=== PATIENT | male | born 1995 | race Caucasian/White ===

== ENCOUNTER 2017-03-04 17:22 | Observation (INO) | payer OTHER ==
[~2017-03-04] VITALS: Ht 172.7 cm; Wt 105.2 kg
--- NOTE | 2017-03-04 17:37 | NUR ---
ARRIVAL PT ARRIVED AMBULATORY TO ER 4 C/O SWOLLEN LYMPH NODE TO RIGHT SIDE OF NECK. NO ACUTE DISTRESS NOTED. PT STATES WAS SEEN IN ANOTHER ER AND GIVEN IBUPROFEN AND NORCO. EDP NOTIFIED OF PT ARRIVAL.
[2017-03-04] MEDS ORDERED: ROCEPHIN 1,000 MG in NS 100ML 100 ML IV STA (18:19)
[2017-03-04] MEDS ORDERED: TORADOL IV STA (18:19)
--- NOTE | 2017-03-04 18:23 | ER.PDOC ---
General Chief Complaint: Neck/Upper back Pain Stated Complaint: SWOLLEN LYMPH NODE TRAVEL OUT OF US: No Time seen by MD: 18:17 Source: patient Exam Limitations: no limitations History of Present Illness Initial Comments swollen lymph node R neck [address] in [place] 3 weeks ago told to take antibiotics worse today pain increased sweling Timing/Duration: getting worse Severity: moderate Associated Symptoms: other Allergies: Coded Allergies: No Known Allergies (Unverified , 03/04/17) Past Medical History Medical History: no pertinent history Surgical History: no surgical history Family History Significant Family History: no pertinent family hx Social History Smoking: non-smoker Alcohol Use: none Drug Use: none Review of Systems Constitutional: denies fever EENTM: denies eye pain Respiratory: denies cough Cardiovascular: denies chest pain Gastrointestinal: denies abdominal pain Musculoskeletal: denies back pain Psychiatric/Neurological: anxiety All Other Systems: Reviewed and Negative Physical Exam General Appearance: Anxious Neck: Non-Tender, Full Range of Motion Respiratory: chest non-tender, lungs clear CVS: reg rate & rhythm, no murmur Extremities: Normal Range of Motion, Non-Tender Neurologic/Psychiatric: nail sticker II-XII NML as Tested Skin: Normal Color Lymphatic: No Adenopathy Comments large tender mass R neck supra clavicular Progress Progress signed out at 1900 Departure Time of Disposition: 19:00 Disposition: 05 DISCH/XFER OTHER Impression: Primary Impression: Neck mass Condition: Stable Referrals: PCP,UNKNOWN (PCP) PRIMARY CARE PROVIDER Additional Instructions: signed out at change of shift needs neck and chest CT with IV contrast Duration or Time Spent with Pa: 20 BARRON ROGERS MD Mar 04, 2017 18:23
[2017-03-04] MEDS ORDERED: NS 1000ML 1,000 ML IV ONE (18:30)
[2017-03-04 18:35] LABS: BASOPHIL % 0.2 % (0.0-0.2); EOSINOPHIL # 0.3 10^3/uL (0.0-0.2); EOSINOPHIL % 1.8 % (0.0-5.0); HEMOGLOBIN 13.2 g/dL (13.9-16.3); LYMPHOCYTES # 2.2 10^3/uL (1.0-4.8); LYMPHOCYTES % 13.9 % (24.0-44.0); MEAN CELL HGB 27.6 pg (26-34); MEAN CELL HGB CONCENTRATION 32.5 g/dL (33-37); MEAN CORP VOLUME 84.9 fL (78-100); MONOCYTES # 1.7 10^3/uL (0.3-0.8); MONOCYTES % 10.8 % (5.0-12.0); NEUTROPHIL # 11.8 10^3/uL (1.8-7.7); NEUTROPHILS % 72.9 % (41.0-85.0); RED CELL DISTRIBUTION WIDTH 12.8 % (11.5-14.5); WHITE BLOOD CELL 16.2 10^3/uL (4.5-11.0)
[2017-03-04 18:49] LABS: CALCIUM 9.2 mg/dL (8.4-10.5); CARBON DIOXIDE 30.1 mmol/L (20.0-32)
[2017-03-04] MEDS ORDERED: ROCEPHIN ONE (18:57)
--- NOTE | 2017-03-04 20:11 | DIREP ---
PROCEDURE:CT SOFT TISSUE NECK W/CONTRAST COMPARISON:None. INDICATIONS:mass R neck TECHNIQUE:CT images were created with intravenous contrast material. Sagittal and coronal reconstructions are performed. FINDINGS: NASOPHARYNX:Normal. Fossae of Rosenmuller and torus tubarius are symmetric. ORAL CAVITY:Normal. No visible mass. OROPHARYNX:Normal. Faucial and lingual tonsils are symmetric. HYPOPHARYNX:Normal. No mass or other visible lesion. LARYNX:Normal. The vocal cords are symmetric and without mass. SINUSES:Normal. Limited views show no significant fluid or mucosal thickening. NECK GLANDS:No pathologic lymphadenopathy. Few small bilateral jugular chain lymph nodes are identified. LYMPH NODES:Normal. No pathological-appearing or enlarged lymph nodes. SKULL BASE:Normal. Foramina are symmetric without bony erosion. VASCULATURE:Normal. Limited views are unremarkable. BONES:Normal. No significant osseous lesions. OTHER:There is a thin rim enhancing, irregular fluid collection measuring 3.6 x 3.1 x 4.1 cm, posterior to the right sternocleidomastoid muscle, approximating the subcutaneous tissues but deep to the platysma along the lateral right lower neck. This fluid collection is suspicious for an abscess. Correlation with white blood cell count is recommended. CONCLUSION: 1. 3.6 x 3.1 x 4.1 cm irregular, rim enhancing fluid collection in the right lower neck posterior and lateral to the right sternocleidomastoid muscle. This fluid collection is suspicious for an abscess. Dictated by: Jovani Titus MD on 03/04/2017 at 08:04 PM
[2017-03-04 20:27] LABS: APPEARANCE,URINE CLEAR (CLEAR); BILIRUBIN,URINE NEGATIVE (NEGATIVE); UA COLOR YELLOW (YELLOW); UROBILINOGEN,URINE NORMAL (NEGATIVE)
--- NOTE | 2017-03-04 20:29 | DIREP ---
PROCEDURE:CTA CHEST COMPARISON:[facility], CT, CT SOFT TISSUE NECK W/CONTRAST, 03/04/2017, 07:39 PM. INDICATIONS:mass r neck TECHNIQUE:Post contrast axial images through the chest with multiplanar MIP/3D reconstructions. FINDINGS: PULMONARY ARTERIES:Patent. LUNGS:No significant pulmonary parenchymal abnormalities. CARDIAC:Normal size heart and normal pulmonary vascularity. THYROID:Normal. THORACIC AORTA:Normal. MEDIASTINUM:Normal. Residual thymus is present. PLEURA:Normal. BONES:Normal. OTHER:Right lower neck supraclavicular fluid collection, best seen on the patient's CT of the neck performed at the same time. Enlarged 1.4 cm short axis right axillary lymph node. CONCLUSION: 1. Clear lungs. No evidence for pulmonary embolism. 2. Right lower neck supraclavicular fluid collection is best seen on the patient's CT of the neck, performed at the same time. 3. Enlarged 1.4 cm short axis right axillary lymph node. This may be reactive. Clinical follow-up can be performed, as indicated. Dictated by: Jovani Titus MD on 03/04/2017 at 08:24 PM
--- NOTE | 2017-03-04 20:57 | NUR ---
TRANSFER CALLED [facility] FOR TRANSFER. THEY ARE ON CODE 1, CODE 3 DIVERSION. PT HAS BEEN PUT ON TRANSFER LIST AT THIS TIME. CALLED [facility] FOR TRANSFER. [facility] IS ON COMPLETE DIVERSION AT THIS TIME.
[2017-03-04] MEDS ORDERED: CLEOCIN IV ONE (21:00)
--- NOTE | 2017-03-04 21:20 | NUR ---
dr fady shrestha at bedside
[2017-03-04] MEDS ORDERED: NS 100ML 100 ML IV ONE (21:30)
[2017-03-04] MEDS ORDERED: ZOSYN 3.375 GRAM VIAL IV ONE (21:39)
[2017-03-04] MEDS: ZOSYN IV SCH (21:53)
[2017-03-04] MEDS: NS IV SCH (21:53)
[2017-03-04] MEDS ORDERED: LACTATED RINGERS 1,000 ML IV SCH (22:00)
[2017-03-04] MEDS ORDERED: NORCO 5MG PO PRN (22:00)
[2017-03-04] MEDS: LOVENOX SQ SCH (22:00)
[2017-03-04] MEDS ORDERED: MORPHINE SULFATE IV PRN (22:00)
[2017-03-04] MEDS ORDERED: DILAUDID IV PRN (22:00)
[2017-03-04] MEDS ORDERED: PHENERGAN IV PRN (22:00)
[2017-03-04] MEDS ORDERED: TORADOL IV PRN (22:00)
[2017-03-04] MEDS ORDERED: ZOFRAN IV PRN (22:00)
[2017-03-04 23:36] VITALS: BP 149/94
[2017-03-05] VITALS (9 sets, daily range): BP systolic 124–168; BP diastolic 71–94
[2017-03-05] MEDS ORDERED: ZOSYN 3.375 GRAM VIAL IV ONE ×2 (03:24→05:30)
[2017-03-05] MEDS ORDERED: LOVENOX SQ ONE ×2 (03:24→21:25)
[2017-03-05] MEDS ORDERED: NS 100ML 100 ML IV ONE ×2 (03:24→05:30)
[2017-03-05] MEDS ORDERED: NS 500ML 500 ML IV ONE (03:26)
[2017-03-05] MEDS: PROTONIX IV IV SCH ×2 (03:46→09:00)
--- NOTE | 2017-03-05 04:30 | NUR ---
IV AC IV UNABLE TO FLUSH, DC'D IV AND RESTARTED 20G TO LEFT WRIST, PT TOLERATED WELL, IV ANTIBIOTICS RESTARTED. IWLL CONTINUE TO MONITOR.
[2017-03-05] MEDS: LACTATED RINGERS 1,000 ML IV SCH ×2 (05:45→14:00)
[2017-03-05] MEDS: NS IV SCH ×3 (05:45)
[2017-03-05] MEDS: ZOSYN IV SCH ×3 (05:45)
--- NOTE | 2017-03-05 06:30 | NUR ---
REPORT RECEIVED REPORT RECEIVED FROM COMBUSTION ENGINEER NURSE MANDEEP CARTY
--- NOTE | 2017-03-05 07:32 | NUR ---
Pt left the floor for OR with or nurses, assisted in bed.
--- NOTE | 2017-03-05 07:35 | NUR ---
Off unit Patient transferred off unit via hospital bed to OR.Bedside report given to MACHELLE Arriaga.
[2017-03-05] MEDS ORDERED: DECADRON ONE (08:32)
[2017-03-05] MEDS ORDERED: VERSED ONE (08:33)
[2017-03-05] MEDS ORDERED: DIPRIVAN IV ONE (08:33)
[2017-03-05] MEDS ORDERED: SUBLIMAZE ONE (08:33)
[2017-03-05] MEDS ORDERED: SENSORCAINE-MPF 0.5% VIAL ONE (08:37)
[2017-03-05] MEDS ORDERED: SODIUM CHLORIDE IR ONE (08:37)
[2017-03-05] MEDS ORDERED: MORPHINE SULFATE IV PRN (09:00)
[2017-03-05] MEDS ORDERED: LACTATED RINGERS 1,000 ML ONE (09:07)
[2017-03-05] MEDS ORDERED: BENADRYL IV PRN (10:00)
[2017-03-05] MEDS ORDERED: ZOFRAN IV PRN (10:00)
[2017-03-05] MEDS ORDERED: PHENERGAN IV PRN (10:00)
[2017-03-05] MEDS ORDERED: DILAUDID IV PRN (10:00)
[2017-03-05] MEDS ORDERED: VENTOLIN IH PRN (10:00)
--- NOTE | 2017-03-05 10:00 | NUR ---
Back on unit Patient arrived back on unit via hospital bed to room 305. Surgical dressing to right neck C/D/I. Special vitals initiated. Offered patient fluids and snacks. Patient denies pain or further needs at this time. Will continue to monitor. Call light within reach.
--- NOTE | 2017-03-05 10:00 | OPH ---
DATE OF SURGERY: PREOPERATIVE DIAGNOSIS: Right neck abscess. POSTOPERATIVE DIAGNOSIS: Right neck abscess. SURGEON: Rowdy Anders DO DEMO COORDINATOR: OR staff. ANESTHESIA: General by Arley Small CRNA plus local used on the field. PROCEDURES PERFORMED: Incision and drainage of abscess. SPECIMENS: Cultures sent to path. ESTIMATED BLOOD LOSS: 11 mL. COUNTS: At the completion of the case, counts were correct per OR staff. DESCRIPTION OF PROCEDURE: The patient is a 21-year-old male known from previous evaluation. Prior to procedure, informed consent was obtained. At time of procedure, he was taken to the operative suite and placed in supine position. After timeout was completed, general anesthesia was obtained. His right neck and chest were prepped and draped in normal fashion. Local was used to anesthetize the base of the area of concern and an 18-gauge needle was introduced into the pocket. Purulent fluid was drained and sent for cultures. Next, an incision was created in the fold of the neck and blunt dissection was made parallel to the structures down to the level of the pocket, which was drained. After the pocket was adequately opened and irrigated, it was palpated, it was noted that in the deep pocket there was possibly a lymph node, but I am uncertain of the nature of the inflammatory tissue in the base. Anteriorly to the pocket, we can feel the lateral border of the sternocleidomastoid. - The pocket slightly extends inferior to the clavicle. After the pocket of purulent fluid was drained, it was copiously irrigated. Minimal bleeding was identified, it was controlled with electrocautery. Next, the wound was packed with iodoform gauze. A dressing was applied and the drapes removed. The patient tolerated these procedures well. There were no acute complications noted. Rowdy Anders DO DR: COLLETTE/bradley JOB# [id number] CC: Ry Kee MD [facility]
[2017-03-05] MEDS: ZOSYN 3.375 GM/50 ML 50 ML IV SCH ×2 (12:16→17:53)
--- NOTE | 2017-03-05 16:30 | NUR ---
REASSESS THE TEMPERATURE REASSESS THE TEMPERATURE IT WAS 98.6. NO S/S OF DISTRESS, Pt DENIES ANY PAIN , DISCOMFORT AT THIS TIME.
--- NOTE | 2017-03-05 18:33 | NUR ---
report received report from offgoing shift
--- NOTE | 2017-03-05 21:10 | CNH ---
DATE OF CONSULTATION: CHIEF COMPLAINT: Right neck abscess. HISTORY OF PRESENT ILLNESS: This is a 21-year-old male who reports to me he noticed some swelling in his right neck 2-3 weeks ago. He was seen by the provider where he lives and was evaluated and treated with ibuprofen and [place] and discharged. He has noted increased swelling and noticed this morning when he woke up that he had significant swelling of his neck and some soreness. He reports he did not have any fevers at home today; however, he was taking headache medicine. He feels that the fevers were controlled with medications he took for the headache. He denies any history of trauma or injury to the area. He does have some stiffness of his neck associated with the anterior mass fullness. He has no previous symptoms. PAST MEDICAL HISTORY: Denies. PAST SURGICAL HISTORY: Denies. ALLERGIES: NO KNOWN DRUG ALLERGIES. HOME MEDICATIONS: Ibuprofen and [place]. FAMILY HISTORY: Mother is living at age 47. Father is living at age 43, they both are healthy per his report. OCCUPATIONAL HISTORY: The patient works as a heat sealing machine operator. SOCIAL HISTORY: Positive for occasional alcohol. He denies illicits or tobacco use. IMMUNIZATIONS STATUS: He reports he had a flu shot this year. REVIEW OF SYSTEMS: CONSTITUTIONAL: He denies fever, chills or weakness. ENDOCRINE: He denies thyroid disease or diabetes. ALLERGIES: Denies seasonal allergies, runny nose or cough. CARDIOVASCULAR: No chest pain or trouble breathing. PULMONARY: Denies dyspnea or cough. ABDOMEN: He denies abdominal pain, nausea, or vomiting. MUSCULOSKELETAL: No complaints. NEUROLOGIC: No reported seizure or blackouts. GENITOURINARY: No dysuria, frequency or urgency. He has rare nocturia. PHYSICAL EXAMINATION: VITAL SIGNS: Last temperature is 99.3, pulse has been as high as 133 since he has been here, currently it is 106, respiratory rate 16, blood pressure 156/93 and O2 sats 98%. HEENT: Normocephalic, atraumatic with pink mucous membranes. GENERAL APPEARANCE: Healthy 21-year-old male in no acute distress. NECK: Soft. He has a mass fullness in the lower neck laterally on the right side anteriorly, it is superior to the clavicles. Trachea is midline. No JVD or thyromegaly. HEART: Has regular rate and rhythm, tachycardic. LUNGS: Clear to auscultation bilaterally. ABDOMEN: Bowel sounds positive, soft, it is nontender. EXTREMITIES: Show positive radial pulse bilaterally, positive dorsal pedal pulse bilaterally. NEUROLOGIC: He has no acute findings. SKIN AND INTEGUMENT: Warm, dry. LABORATORY STUDIES: White count 16.2, hemoglobin 13.2, platelet count is 350,000. Chemistry shows BUN 10, creatinine 1.03, sodium is 138. Urine shows specific gravity 1.010. IMAGING STUDIES: He has had a CT scan of the neck that shows 3.6 x 3.1 x 4.1 fluid collection in the lower neck posterolateral of the right sternocleidomastoid consistent with an abscess. SURGICAL ASSESSMENT: 1. Probable right neck abscess. 2. Early sepsis. PLAN: 1. The patient is seen and examined. His chart is reviewed. 2. The patient's n.p.o. status is questionable. He has had solids in the last 4 hours. Therefore, because of the risk of aspiration, we will admit him to the hospitalist, and start him on broad spectrum IV antibiotics and board him for surgical drainage of the abscess tomorrow morning. Discussed with the patient and his family and with the hospitalist service and they are all in agreement with this plan. Rowdy Anders DO DR: COLLETTE/bradley JOB# [id number] CC: Ry Kee MD MTDD
[2017-03-05] MEDS: LOVENOX SQ SCH (21:32)
[2017-03-06 00:35] VITALS: BP 136/84
[2017-03-06] MEDS: ZOSYN 3.375 GM/50 ML 50 ML IV SCH ×3 (00:43→11:31)
[2017-03-06] MEDS: LACTATED RINGERS 1,000 ML IV SCH ×2 (06:00→08:12)
[2017-03-06 06:02] VITALS: BP 147/78
--- NOTE | 2017-03-06 06:30 | NUR ---
REPORT RECEIVED FROM THE MARKETING RESEARCH ANALYST NURSE
--- NOTE | 2017-03-06 07:10 | NUR ---
report report given to o/c shift
[2017-03-06 07:34] LABS: HEMOGLOBIN 12.5 g/dL (13.9-16.3); MEAN CELL HGB 27.7 pg (26-34); MEAN CELL HGB CONCENTRATION 32.1 g/dL (33-37); MEAN CORP VOLUME 86.3 fL (78-100); MEAN PLATELET VOLUME 10.1 fL (7.8-11.0); RED CELL DISTRIBUTION WIDTH 13.1 % (11.5-14.5); WHITE BLOOD CELL 18.7 10^3/uL (4.5-11.0)
[2017-03-06] MEDS: PROTONIX IV IV SCH (08:12)
--- NOTE | 2017-03-06 08:15 | NUR ---
WOUNDCARE WOUNDCARE WAS PROVIDED BY NURSE CHARMAINE CARTY, WAS DEMONSTRATED TO THE PARENTS OF Pt THE PROCESS OF DRESSING CHANGE AND WOUND CARE.
--- NOTE | 2017-03-06 10:00 | NUR ---
Wound care Wound dressing teaching provided to family and patient to perform at home. S/S of infection and when to contact physician reviewed.
--- NOTE | 2017-03-06 12:08 | NUR ---
BLOOD PRESSURE PER PAT SANTIAGO PtS BP 149/98, THIS NURSE ASKED THE Pt IF HE HAS ANY HEADACHE, CHEST, DIZZINESS, Pt DENIED AND STATES "ITS ALWAYS BEEN LIKE THAT SINCE I HAVE BEEN HERE", WILL REASSESS THE V/S. AND ENFORCED THE Pt TO NOTIGY NURSE IN CASE OF ANY S/S OF DISTRESS, Pt VERBALIZED UNDERSTANDING, FAMILY AT THE BEDSIDE.
[2017-03-06 12:19] VITALS: BP 149/98
[2017-03-06 13:45] LABS: BASOPHIL % 0.3 % (0.0-0.2); EOSINOPHIL # 0.1 10^3/uL (0.0-0.2); EOSINOPHIL % 0.4 % (0.0-5.0); HEMOGLOBIN 12.2 g/dL (13.9-16.3); LYMPHOCYTES # 2.3 10^3/uL (1.0-4.8); LYMPHOCYTES % 15.7 % (24.0-44.0); MEAN CELL HGB 28.1 pg (26-34); MEAN CELL HGB CONCENTRATION 32.4 g/dL (33-37); MEAN CORP VOLUME 86.6 fL (78-100); MEAN PLATELET VOLUME 10.2 fL (7.8-11.0); MONOCYTES # 1.1 10^3/uL (0.3-0.8); MONOCYTES % 7.7 % (5.0-12.0); NEUTROPHIL # 10.9 10^3/uL (1.8-7.7); NEUTROPHILS % 75.3 % (41.0-85.0); RED CELL DISTRIBUTION WIDTH 13.1 % (11.5-14.5); WHITE BLOOD CELL 14.5 10^3/uL (4.5-11.0)
[2017-03-06] MEDS ORDERED: AMOX1TAB63 PO (14:24)
--- NOTE | 2017-03-06 14:28 | PRM.DC ---
Discharge Summary Date of Discharge: Mar 06, 2017 Reason for Visit: Neck swelling and pain History Present Illness: (1) Neck abscess Status: Resolved ICD Code: L02.11 - Cutaneous abscess of neck SNOMED: [id number] Assessment & Plan: Continue oral antibiotics and wound care as instructed General: Alert, Oriented X3, Cooperative, No acute distress HEENT: PERRLA, EOMI Neck: Supple, No JVD, Other (neck wound dressing clean and dry) Lungs: Clear to auscultation, Normal air movement Heart: Regular rate, Normal S1, Normal S2 Abdomen: Normal bowel sounds, Soft, No tenderness Extremities: No clubbing, No cyanosis, No edema Skin: No breakdown Neuro: Normal speech, Strength at 5/5 X4 ext, Cranial nerves 3-12 NL Psych/Mental Status: Mental status NL, Mood NL Results(Labs/Rad) Laboratory Tests Test 03/04/17 18:30 03/04/17 20:08 03/05/17 05:29 03/06/17 07:22 White Blood Count 16.2 10^3/uL 18.7 10^3/uL Red Blood Count 4.78 10^6/uL 4.51 10^6/uL Hemoglobin 13.2 g/dL 12.5 g/dL Hematocrit 40.6 % 38.9 % Mean Corpuscular Volume 84.9 fL 86.3 fL Mean Corpuscular Hemoglobin 27.6 pg 27.7 pg Mean Corpuscular Hemoglobin Concent 32.5 g/dL 32.1 g/dL Red Cell Distribution Width 12.8 % 13.1 % Platelet Count 350 10^3/uL 335 10^3/uL Mean Platelet Volume 10.0 fL 10.1 fL Neutrophils (%) (Auto) 72.9 % Lymphocytes (%) (Auto) 13.9 % Monocytes (%) (Auto) 10.8 % Neutrophils # (Auto) 11.8 10^3/uL Lymphocytes # (Auto) 2.2 10^3/uL Monocytes # (Auto) 1.7 10^3/uL Absolute Immature Granulocyte (auto 0.07 10^3 u/L Eosinophils % 1.8 % Basophils % 0.2 % Basophils # 0.0 10^3/uL Eosinophil Count 0.3 10^3/uL Sodium Level 138 mmol/L Potassium Level 4.1 mmol/L Chloride Level 100.0 mmol/L Carbon Dioxide Level 30.1 mmol/L Anion Gap 12.0 Blood Urea Nitrogen 10 mg/dL Creatinine 1.03 mg/dL Estimated GFR () 110.3 BUN/Creatinine Ratio 9.0 Glucose Level 107 mg/dL Calcium Level 9.2 mg/dL Total Bilirubin 0.4 mg/dL Aspartate Amino Transf (AST/SGOT) 13 U/L Alanine Aminotransferase (ALT/SGPT) 31 U/L Alkaline Phosphatase 80 U/L Total Protein 8.1 g/dL Albumin 3.5 g/dL Globulin 4.6 Percent Immature Gran (Cell Imm) 0.40 % Urine Collection Type VOID Urine Color YELLOW Urine Appearance CLEAR Urine Bilirubin NEGATIVE MG/DL Urine Ketones NEGATIVE Urine Specific [place] 1.010 Urine pH 7 Urine Protein NEGATIVE Urine Urobilinogen NORMAL Urine Nitrate NEGATIVE Urine Leukocyte Esterase NEGATIVE Urine Blood NEGATIVE Urine Glucose NORMAL Prothrombin Time 10.4 SEC Prothrombin Time INR (Non-Therap) 1.0 Activated Partial Thromboplast Time 29.8 SEC Test 03/06/17 13:34 White Blood Count 14.5 10^3/uL Red Blood Count 4.34 10^6/uL Hemoglobin 12.2 g/dL Hematocrit 37.6 % Mean Corpuscular Volume 86.6 fL Mean Corpuscular Hemoglobin 28.1 pg Mean Corpuscular Hemoglobin Concent 32.4 g/dL Red Cell Distribution Width 13.1 % Platelet Count 338 10^3/uL Mean Platelet Volume 10.2 fL Neutrophils (%) (Auto) 75.3 % Lymphocytes (%) (Auto) 15.7 % Monocytes (%) (Auto) 7.7 % Neutrophils # (Auto) 10.9 10^3/uL Lymphocytes # (Auto) 2.3 10^3/uL Monocytes # (Auto) 1.1 10^3/uL Absolute Immature Granulocyte (auto 0.08 10^3 u/L Eosinophils % 0.4 % Basophils % 0.3 % Basophils # 0.0 10^3/uL Eosinophil Count 0.1 10^3/uL Percent Immature Gran (Cell Imm) 0.60 % Scheduled Amoxicillin/Potassium Clav (Augmentin 875-125 Tablet), 1 EACH PO BID Sepsis Evaluation @ Discharge Course Blood Pressure Systolic: 149 Blood Pressure Diastolic: 98 Blood Pressure Mean: 115 Notes see dictated report Plan Discharge Date: Mar 06, 2017 Dicharge DX: 1. Neck abscess Discharge Disposition: Stable Plan Continue wound care as instructed Oral antibiotics for five more days Diet and activity as tolerated Discharge plans discussed with patient, he is his own decision maker and does understand and concur with plans Time spent 25 minutes JOSÉ MIGUEL ALSTON MD Mar 06, 2017 14:28
--- NOTE | 2017-03-06 14:40 | NUR ---
DISCHARGED Pt DISCHARGED , EDUCATED ABOUT ANTIBIOTIC PRESCRIPTION. OFFERED WHEELCHAIR Pt DENIED, SELF AMBULATED TO MAIN ENTRANCE.
[2017-03-06 14:53] VITALS: BP 149/98
--- NOTE | 2017-03-06 21:43 | HPH ---
ADMIT DATE: 03/04/2017 CHIEF COMPLAINT: Neck pain and swelling. HISTORY OF PRESENT ILLNESS: The patient is a 21-year-old man with no significant past medical or past surgical history, who presented to the ER with some pain and swelling in the right side of his neck. It started about 3 weeks ago. He had a CT done in his home state of [place] about 3 weeks ago and was told to take antibiotics, but he continued to progress, and came to the ER here. He was seen by General Surgery in the Emergency Room after he was diagnosed with a neck abscess. He was admitted to the hospital and started on fluids and IV antibiotics. He was taken to the operating room and had an incision and drainage of the neck abscess. PAST MEDICAL HISTORY: None PAST SURGICAL HISTORY: None ALLERGIES: NONE. MEDICATIONS: He takes no routine home medications. SOCIAL HISTORY: He lives at home. No alcohol, tobacco, or illicit drug use history. FAMILY HISTORY: Negative for early coronary artery disease or diabetes. REVIEW OF SYSTEMS: CARDIAC: Denied chest pain, shortness of breath, or dyspnea on exertion. PULMONARY: No cough, sputum production, or pleuritic chest pain. GASTROINTESTINAL: No nausea, vomiting, diarrhea, or constipation. All else negative in the 10-point Review of Systems, except as in the HPI. PHYSICAL EXAMINATION: VITAL SIGNS: Vital upon arrival to the ER: Height 172.7 cm, weight 105.2 kilograms, temperature 99.3 degrees Fahrenheit, pulse 107, respiratory rate 17, blood pressure 168/99 mmHg, and O2 saturation 100% on room air. GENERAL: He was alert, in no acute distress at the time of exam. HEENT: Pupils were equal, round, and reactive to light. Sclerae were anicteric. Oropharynx was clear. Mucous membranes were moist. NECK: The neck was supple, no lymphadenopathy. CARDIOVASCULAR: At the time of exam was tachycardic, regular rhythm. PULMONARY: The lungs were clear bilaterally, no wheezing. ABDOMEN: The abdomen was soft, bowel sounds were present. Nontender to palpation. EXTREMITIES: No cyanosis, clubbing, or significant edema. NEUROLOGIC: Grossly nonfocal. SKIN: On skin examination of the right side of his neck, he had a large fluctuant swelling with some mild redness. LABORATORY DATA: CBC: White count 16.2, hemoglobin 13.2, and platelets 350. DIFFERENTIAL: 73% neutrophils, 14% lymphocytes, and 11% monocytes. CHEMISTRY PANEL: Sodium 138, potassium 4.1, chloride 100, CO2 30, BUN 10, creatinine 1, glucose 107, calcium 9.2, total bilirubin 0.4, AST 13, ALT 31, alkaline phosphatase 80, total protein 8.1, and albumin 3.5. COAGULATION STUDIES: PT 10.4 and PTT 29.8. IMAGING DATA: Soft tissue CT of the neck showed a 3 x 6 x 3.1 x 4.1 cm irregular rim-enhancing fluid collection in the right lower neck posterior and lateral to the right sternocleidomastoid muscle. CT-angiogram revealed no evidence of a PE, with clear lungs, and with a 1.4 cm short axis right axillary lymph node. ASSESSMENT AND PLAN: The patient is a 21-year-old man here with sepsis with the SIRS criteria being tachycardia and leukocytosis with the source being a right neck abscess. 1. IV fluids. 2. IV antibiotics. 3. Appropriate p.r.n. pain and nausea medications. 4. General surgery was consulted and he was taken to the operating room for an incision and drainage. 5. DVT prophylaxis with Lovenox. Time spent on March 05, 2017: 45 minutes Ry Kee MD DR: RAMON/bradley JOB# [id number]
--- NOTE | 2017-03-07 02:34 | DSH ---
DATE OF DISCHARGE: 03/06/2017 DISPOSITION: Routine discharge to home. PRINCIPAL DIAGNOSIS ON DISCHARGE: Sepsis secondary to a right neck abscess. BRIEF SUMMARY: The patient was initially admitted on March 04, 2017 to the Emergency Room with pain and swelling in the right side of his neck. Workup revealed he had an abscess on the right side. General Surgery was consulted and he had an incision and drainage performed. He was given IV fluids and IV antibiotics. After surgery, he received wound care and continued IV antibiotics. Overnight, he did significantly improve. He had an elevated leukocytosis, but it did improve after the IV antibiotics. At the time of discharge, the pain was well controlled, he was afebrile, he was feeling well and tolerating a diet well. He was given instructions on wound care with routine to discharge home. DISCHARGE MEDICATIONS: To take Augmentin b.i.d. for 5 more days. DISCHARGE INSTRUCTIONS: Wound care given by the wound care nurse. DISCHARGE FOLLOWUP: With primary care physician in 1 to 2 weeks. DISCHARGE ACTIVITY AND DIET: As tolerated. The discharge plan was discussed with the patient; he is his own decision maker and does understand and concur with the plans. Time spent on this discharge: 25 minutes Ry Kee MD DR: RAMON/bradley JOB# [id number]
== END 2017-03-06 15:03 | disposition home or self-care (01) ==
LOC: ER 17:22 → MS 21:24 → EDBEDREQ 21:58 → MS 03-05 09:37
PROVIDERS: ADMIT Internal Medicine; ATTEND Internal Medicine
DX: L02.11 Cutaneous abscess of neck (principal); R22.1 Localized swelling, mass and lump, neck; A41.9 Sepsis, unspecified organism; R00.0 Tachycardia, unspecified; D72.829 Elevated white blood cell count, unspecified
CPT/HCPCS: 10061; 36415 ×3; 70491; 71275; 80053; 81002; 85025 ×2; 85027; 85610; 85730; 87070; 87075; 96365; 96366 ×2; 96367; 96372 ×2; 96375 ×2; 96376; 99285; A4649; C9113 ×2; G0378 ×42; J0696 ×2; J1100; J1170; J1650 ×2; J1885 ×3; J2250; J2405; J2543 ×3; J3010; J3490 ×2; J7030 ×2; J7040; J7050 ×5; J7120 ×4; Q9967